=== PATIENT | female | born 1955 | race Caucasian/White ===

== ENCOUNTER 2019-12-21 16:48 | Emergency (ER) | payer OTHER ==
[2019-12-21 16:58] VITALS: BP 115/71; PULSE 95; TEMP 98.1; BMI 33.3
--- NOTE | 2019-12-21 18:02 | PDOC ---
History of Present Illness - General Chief Complaint: Cold Symptoms Stated Complaint: FEVER/COUGHING/CHILLS/LIGHT HEADED Time Seen by Provider: 12/21/19 18:02 History Source: Patient - History of Present Illness Initial Comments: 12/21/19 19:36 Chief complaint: Cough, diarrhea Patient is 64-year-old female with history of hypertension states she had the flu about 2 weeks ago, got better a couple of days ago felt like she was getting the flu again. Patient states she is weak, having some diarrhea, no vomiting. Patient has chills and worsening cough. No shortness of breath. GENERAL/CONSTITUTIONAL: No fever, weakness. dizziness, + chills HEAD, EYES, EARS, NOSE AND THROAT: No change in vision. No ear pain or discharge. No sore throat. CARDIOVASCULAR: No chest pain RESPIRATORY: No shortness of breath +cough GASTROINTESTINAL: No pain, nausea, vomiting, +diarrhea no:constipation GENITOURINARY: No dysuria MUSCULOSKELETAL: No neck or back pain SKIN: No rash NEUROLOGIC: No headache, vertigo, loss of consciousness, or loss of sensation. GENERAL: The patient is awake, alert, and fully oriented, in no acute distress. HEAD: Normal with no signs of trauma. EYES: Pupils equal, round and reactive to light, sclera anicteric, conjunctiva clear. ENT: Ears clear, TMs normal pharynx: no erythema, no exudate, uvula midline NECK: supple CHEST: Rhonchus, minimal wheeze with cough, no respiratory distress, nontender, rr ABD: soft, nontender BACK: no tenderness or signs of injury EXTREMITIES: Normal range of motion, no edema. NEUROLOGICAL: Normal speech, normal gait. SKIN: Warm, Dry Past History - Past Medical History Allergies/Adverse Reactions: Allergies Allergy/AdvReac Type Severity Reaction Status Date / Time egg Allergy Verified 12/21/19 16:58 shellfish derived AdvReac Verified 12/21/19 16:58 Home Medications: Ambulatory Orders Albuterol Sulfate [Albuterol Sulfate Hfa] 8.5 gm IH Q4H PRN #1 hfa.aer.ad Amlodipine Besylate 5 mg PO DAILY #30 tablet 12/21/19 Azithromycin [Zithromax -] 250 mg PO UTDICT #6 tab 12/21/19 COPD: No HTN: Yes - Immunization History Immunization Up to Date: Yes - Psycho Social/Smoking Cessation Hx Smoking History: Former smoker Have you smoked in the past 12 months: Yes If you are a former smoker, when did you quit?: 2MONTHS AGO Information on smoking cessation initiated: No Hx Alcohol Use: No Drug/Substance Use Hx: No *Physical Exam - Vital Signs Last Vital Signs Temp Pulse Resp BP Pulse Ox 98.1 F 95 H 17 115/71 98 12/21/19 16:53 12/21/19 16:53 12/21/19 16:53 12/21/19 16:53 12/21/19 16:53 Medical Decision Making - Medical Decision Making 12/21/19 19:36 12/21/19 19:39 64-year-old female with history of hypertension with reoccurring flu symptoms, worsening cough, chills and some diarrhea. Patient is able to drink p.o. fluids without difficulty feels she is not dehydrated. Patient's abdominal exam is benign. Patient will get chest x-ray and flu swab. Patient asking for refill of her amlodipine 5 mg as she used her last one yesterday, will give her month supply. Chest x-ray shows possible right lower lobe infiltrate and patient sounds rhonchorous and has a wheeze with cough. Patient is stable for discharge home. Will put on Zithromax. We will also give albuterol inhaler. Patient does not have history of asthma. Patient wants to go home. Flu swab is pending, will call her with results Discharge - Discharge Information Problems reviewed: Yes Clinical Impression/Diagnosis: Cough Condition: Stable Disposition: HOME - Admission No - Additional Discharge Information Prescriptions: Albuterol Sulfate [Albuterol Sulfate Hfa] 8.5 gm IH Q4H PRN #1 hfa.aer.ad PRN Reason: Wheezing Amlodipine Besylate 5 mg PO DAILY #30 tablet Azithromycin [Zithromax -] 250 mg PO UTDICT #6 tab - Follow up/Referral - Patient Discharge Instructions Additional Instructions: Your chest x-ray shows that you might have pneumonia, take the antibiotic, the Zithromax as directed for 5 days Use the albuterol inhaler 2 puffs every 4-6 hours for wheezing Drink 2-3 L of water daily Take Tylenol 650 mg every 4 hours or Motrin 600 mg every 6 hours for fever and pain Return to the nearest ER if short of breath, unable to swallow or feeling sicker Followup with your doctor in one to 2 days - Post Discharge Activity
== END 2019-12-21 19:36 | disposition home or self-care (01) ==
LOC: JERFT 16:48
DX: R05 Cough (principal); I10 Essential (primary) hypertension; Z91.012 Allergy to eggs; Z91.013 Allergy to seafood
CPT/HCPCS: 71046-TC-FY; 87804; 99282-25